=== PATIENT | female | born 1990 | race African-American/Black ===

== ENCOUNTER 2023-04-27 10:10 | Emergency (ER) | payer MEDICAID ==
[~2023-04-27] VITALS: Ht 170.2 cm; Wt 86.0 kg
[2023-04-27 10:14] VITALS: TEMP 98.7; O2SAT 99
[2023-04-27] MEDS ORDERED: KETOROLAC 30MG/ML VIAL IV STA (10:38)
[2023-04-27] MEDS ORDERED: SODIUM CHLORIDE 0.9% 1,000 ML IV ONE (10:45)
[2023-04-27] MEDS ORDERED: ONDANSETRON HCL 4MG/2ML INJ IV ONE (11:00)
[2023-04-27 11:11] LABS: BASOPHILS % 0.5 % (0.0-2.0); EOSINOPHILS % 0.5 % (0.0-5.0); HEMATOCRIT. 29.5 % (36.0-48.0); HEMOGLOBIN. 9.1 g/dL (12.0-16.0); LYMPHOCYTES % 13.4 % (20.0-50.0); MEAN CORPUSCULAR HEMOGLOBIN 19.1 pg (28.0-32.0); MEAN CORPUSCULAR VOLUME 61.6 fL (81.0-99.0); MEAN PLATELET VOLUME 8.7 fl (7.4-10.4); NEUTROPHILS % 81.6 % (40.0-76.0); PLATELET 436 x1000/uL (130-400); RED BLOOD CELL COUNT 4.79 mill/uL (4.2-5.4); RED CELL DISTRIBUTION WIDTH 18.5 % (11.6-14.6); WHITE BLOOD COUNT 9.1 x1000/uL (4.5-11.0)
[2023-04-27 11:13] LABS: ADD RBC MORPHOLOGY YES; DIFFERENTIAL COMMENT 1
[2023-04-27 11:18] LABS: PROTHROMBIN TIME 10.6 sec (9.6-11.0)
[2023-04-27 11:21] LABS: CHLORIDE 110 mEq/L (98-107); INDEX HEMOLYSI 1 (1-3); INDEX ICTERIC 1 (1-4); INDEX LIPEMIC 1 (1-3); POTASSIUM 3.8 mEq/L (3.5-5.1); SODIUM 140 mEq/L (136-145)
[2023-04-27 11:31] VITALS: BP 92/46; PULSE 62; RESP 18
[2023-04-27 11:31] LABS: ALANINE AMINOTRANSFERASE 24 IU/L (13-61); ALBUMIN 3.7 g/dL (3.4-5.0); ASPARTATE AMINOTRANSFERASE 11 IU/L (15-37); BILIRUBIN TOTAL 0.4 mg/dL (0.1-1.0); CALCIUM 8.9 mg/dL (8.5-10.1); CARBON DIOXIDE 22 mEq/L (21-32); CREATININE 0.9 mg/dL (0.6-1.3); ETHANOL BLOOD < 10 mg/dL (<10); GLUCOSE 218 mg/dL (70-105); PROTEIN TOTAL 7.5 g/dL (6.0-8.3); TROPONIN I HIGH SENSITIVITY 4 ng/L (<54); UREA NITROGEN BLOOD 6 mg/dL (7-21)
[2023-04-27 11:39] LABS: ANISOCYTOSIS 2+; MICROCYTOSIS 4+; PLATELET ESTIMATE SLIGHTLY INCREASED
[2023-04-27 11:40] LABS: HYPOCHROMASIA 1+
[2023-04-27 14:51] LABS: TROPONIN I HIGH SENSITIVITY < 4 ng/L (<54)
[2023-04-27] MEDS ORDERED: MORPHINE SULFATE 4 MG/ML CPJ (NOT FOR IM USE) IV ONE (16:15)
[2023-04-27 16:20] LABS: HCG SCREEN NEGATIVE
[2023-04-27] MEDS ORDERED: HYDR-4001 MT (17:45)
[2023-04-27] MEDS ORDERED: ONDA4TAB50 MT (17:45)
[2023-04-27] MEDS ORDERED: IBUP-1525 MT (17:45)
== END 2023-04-27 19:11 | disposition home or self-care (01) ==
LOC: ER 10:10
DX: R10.9 Unspecified abdominal pain (principal); E11.9 Type 2 diabetes mellitus without complications; Z87.442 Personal history of urinary calculi
CPT/HCPCS: 80053; 80320; 84703; 83690; 85025; 85610; 84484; 36415; 74176; 93005; 96374; 96375; 99285; J1885; J2405; J2270; J7030; Z7610 ×3; G0480